=== PATIENT | female | born 1955 | race African-American/Black ===

== ENCOUNTER → 2017-04-13 | Outpatient (CLI) | payer OTHER ==
--- NOTE | 2017-04-13 12:56 | WOMENS IMAGING REPORT ---
EXAM DESCRIPTION: BILAT SCREENING MAMMO W/CAD COMPLETED DATE/TIME: 04/13/2017 12:26 pm REASON FOR STUDY: ROUTINE SCREENING; Z12.31 Z12.31 ENCNTR SCREEN MAMMOGRAM FOR MALIGNANT NEOPLASM O F PB COMPARISON: 2008 to 2011 TECHNIQUE: Standard craniocaudal and mediolateral oblique views of each breast recorded using Cardbacka l acquisition. LIMITATIONS: None. FINDINGS: RIGHT BREAST MASSES: No suspicious masses. CALCIFICATIONS: No new or suspicious calcifications. ARCHITECTURAL DISTORTION: None. DEVELOPING DENSITY: None. ASYMMETRY: None noted. OTHER: No other significant findings. LEFT BREAST MASSES: Smooth well-circumscribed 6 mm mass at 11 o'clock 4.5 cm from the nipple CALCIFICATIONS: No new or suspicious calcifications. ARCHITECTURAL DISTORTION: None. DEVELOPING DENSITY: None. ASYMMETRY: None noted. OTHER: No other significant findings. Read with the assistance of CAD. .[facility] - R2 Cenova Version 1.3 .[facility] - R2 Cenova Version 1.3 .[facility] - R2 Cenova Version 2.4 .[facility] [place] - R2 Cenova Version 2.4 .[facility] - R2 Implementation Project Coordinator Version 9.2 IMPRESSION: New mass in left breast BREAST DENSITY: b. There are scattered areas of fibroglandular density. BIRAD: 0 Incomplete: Needs Additional Imaging Evaluation and/or prior Mammograms for Comparison. RECOMMENDATION: RECOMMENDED FOLLOW-UP: Spot compression and ultrasound. The patient will be contacted for additional imaging. COMMENT: The patient has been notified of the results by letter per SA requirements. Additional no tification policies are in place for contacting patient with suspicious or incomplete findings. Quality ID #[id number]: The [employer] recommends an annual screening mammogram for women aged 40 years or over. This facility utilizes a reminder system to ensure that all patients receive reminder letters, and/or direct phone calls for appointments. This includes reminders for routine scr eening mammograms, diagnostic mammograms, or other Breast Imaging Interventions when appropriate. Th is patient will be placed in the appropriate reminder system. The [employer] (ACR) has developed recommendations for screening MRI of the breast s in certain patient populations, to be used in conjunction with mammography. Breast MRI surveillanc e may be appropriate for women with more than 20% lifetime risk of developing breast cancer as deter mined by genetic testing, significant family history of the disease, or history of mantle radiation f or Hodgkins Disease. ACR Practice Guidelines 2008. TECHNICAL DOCUMENTATION: FINDING NUMBER: (1) ASSESSMENT: (1) JOB ID: [id number] [employer]- All Rights Reserved
== END ==
LOC: WI 11:36
PROVIDERS: ATTEND Family Medicine
DX: Z12.31 Encounter for screening mammogram for malignant neoplasm of breast (principal)
CPT/HCPCS: 77067; G0202

== ENCOUNTER → 2017-05-14 | Day surgery (SDC) | payer OTHER ==
[~2017-05-14] MED LIST: LIDOCAINE 2% INJ (20 MG/ML) 20 ML MDV ONE
--- NOTE | 2017-05-18 17:01 | WOMENS IMAGING REPORT ---
EXAM DESCRIPTION: U/S BREAST BX; LEFT DIG DX MAMMO NO CHG COMPLETED DATE/TIME: 05/14/2017 12:05 pm; 05/14/2017 11:30 am REASON FOR STUDY: LEFT BREAST LUMP; N63.22 S/P LEFT BRST US BX FOR CLIP PLACEMENT N63.22 UNSPECIFIE D LUMP IN THE LEFT BREAST, UPPER INNER QUAD COMPARISON: Mammograms 04/13/2017, 05/05/2017 Left breast ultrasound 05/05/2017 TECHNIQUE: The procedure was discussed with the patient and the patient agreed to proceed. The patient was scanned and the area of interest in the 10 to 11 o'clock position 4 to 5 cm from the nipple of the left breast was localized. This correlates with the area of concern on prior imaging s [place]. This area was targeted for ultrasound-guided core biopsy. After sterile skin prep and 2.5 mL local lidocaine 1% for skin and deep tissue anesthesia, a 14 gauge coaxial core biopsy needle was used to obtain several cores of tissue from the lesion. Under ultras ound guidance, a ribbon clip was placed in the areas sampled. There were no immediate post-procedure complications. MAMMOGRAM: Post-procedure two view mammogram was acquired in the digital mammogram suite. The clip wa s in the expected location. No significant hematoma. Pathology yields a diagnosis of sclerosing adenosis, usual ductal hyperplasia, fibrocystic changes, l ikely a small fibroadenoma. No atypia or malignancy Pathology is concordant. LIMITATIONS: None. FINDINGS: Ultrasound guided breast biopsy as described above. POST PROCEDURE MAMMOGRAMS FOR MARKER PLACEMENT: Yes IMPRESSION: ULTRASOUND-GUIDED CORE BIOPSY OF THE LEFT BREAST YIELDS A DIAGNOSIS OF BENIGN FIBROADENO MA BI-RADS 2 Benign findings. Please resume yearly bilateral screening mammograms in March 2018. Please consider bilateral scree jorge tomosynthesis. COMMENT: COMMUNICATION: This result was called to Dr. Stoddard's nurse, Marianela, 05/18/2017, 1500 hours. I was unable to with the patient directly to discuss the biopsy results Patient medication list reviewed: Yes- Quality ID# [id number]:Eligible professional attests to documenting i n the medical record they obtained, updated, or reviewed the patient's current medications. TECHNICAL DOCUMENTATION: JOB ID: [id number] [employer]- All Rights Reserved
== END ==
LOC: WI 10:28
PROVIDERS: ATTEND Family Medicine
PROC: 0HBU3ZX Excision of Left Breast, Percutaneous Approach, Diagnostic (ICD-10-PCS; principal; 2017-05-14)
DX: N60.22 Fibroadenosis of left breast (principal); N60.12 Diffuse cystic mastopathy of left breast; N60.92 Unspecified benign mammary dysplasia of left breast
CPT/HCPCS: 88342 ×2; 88341 ×2; 88305 ×2; 19083; J3490

== ENCOUNTER 2017-06-24 13:46 | Emergency (ER) | payer OTHER ==
[2017-06-24 14:34] LABS: APPEARANCE,URINE SLIGHTLY-CLOUDY; BILIRUBIN,URINE NEGATIVE (NEGATIVE); COLOR,URINE YELLOW; GLUCOSE, URINE NEGATIVE (NEGATIVE); KETONES,URINE NEGATIVE (NEGATIVE); LEUKOCYTE ESTERASE,URINE NEGATIVE (NEGATIVE); NITRITE,URINE NEGATIVE (NEGATIVE); PROTEIN,URINE NEGATIVE (NEGATIVE); URINE SPECIFIC GRAVITY 1.014; UROBILINOGEN,URINE NEGATIVE mg/dL (<2.0)
[2017-06-24 14:46] LABS: ABSOLUTE BASOPHILS # (AUTO) 0.1 10^3/uL (0.0-0.2); ABSOLUTE EOSINOPHILS # (AUTO) 0.6 10^3/uL (0.0-0.6); ABSOLUTE LYMPHOCYTES (AUTO) 2.1 10^3/uL (0.5-4.7); ABSOLUTE NEUT (AUTO) 5.1 10^3/uL (1.7-8.2); BASOPHILS % (AUTO) 0.8 % (0-2); EOSINOPHILS % (AUTO) 7.2 % (0-6); HEMATOCRIT 35.4 % (36.0-47.0); HEMOGLOBIN 11.7 g/dL (12.0-15.5); MEAN CORPUSCULAR HGB CONC 32.9 g/dL (32.0-36.0); MEAN CORPUSCULAR VOLUME 88 fl (80-97); MONOCYTES % (AUTO) 11.7 % (3-13); PLATELET COUNT 316 10^3/uL (150-450); RED BLOOD COUNT 4.03 10^6/uL (3.72-5.28); RED CELL DISTRIBUTION WIDTH 13.9 % (11.5-14.0); SEGMENTED NEUTROPHILS % (AUTO) 57.3 % (42-78); TOTAL CELLS COUNTED % (AUTO) 100 %
[2017-06-24 14:56] LABS: ALANINE AMINOTRANSFERASE 26 U/L (9-52); ALBUMIN 4.4 g/dL (3.5-5.0); ALKALINE PHOSPHATASE 135 U/L (38-126); ANION GAP 11 (5-19); ASPARTATE AMINO TRANSFERASE 32 U/L (14-36); BILIRUBIN,DIRECT 0.4 mg/dL (0.0-0.4); BILIRUBIN,TOTAL 0.5 mg/dL (0.2-1.3); BLOOD UREA NITROGEN 14 mg/dL (7-20); CARBON DIOXIDE 29 mmol/L (22-30); CHLORIDE 107 mmol/L (98-107); CREATINE KINASE 124 U/L (30-135); GLUCOSE 87 mg/dL (75-110); POTASSIUM 4.3 mmol/L (3.6-5.0); SODIUM 147.2 mmol/L (137-145); TOTAL PROTEIN 7.6 g/dL (6.3-8.2)
[2017-06-24 15:08] LABS: CREATINE KINASE MB 0.42 ng/mL (<4.55); NT PRO BNP 210 pg/mL (5-900)
[2017-06-24 15:10] LABS: TROPONIN I < 0.012 ng/mL
--- NOTE | 2017-06-24 15:51 | RADIOLOGY REPORT (SQ) ---
EXAM DESCRIPTION: CHEST SINGLE VIEW COMPLETED DATE/TIME: 06/24/2017 3:28 pm REASON FOR STUDY: sob COMPARISON: 11/23/2014. EXAM PARAMETERS: NUMBER OF VIEWS: One view. TECHNIQUE: Single frontal radiographic view of the chest acquired. RADIATION DOSE: NA LIMITATIONS: None. FINDINGS: LUNGS AND PLEURA: No opacities, masses or pneumothorax. No pleural effusion. MEDIASTINUM AND HILAR STRUCTURES: No masses. Contour normal. HEART AND VASCULAR STRUCTURES: Heart normal in size. Normal vasculature. BONES: No acute findings. HARDWARE: None in the chest. OTHER: No other significant finding. IMPRESSION: NO ACUTE RADIOGRAPHIC FINDING IN THE CHEST. TECHNICAL DOCUMENTATION: JOB ID: [id number] [employer]- All Rights Reserved
--- NOTE | 2017-06-24 16:37 | ER Document Report ---
ED General - General Chief Complaint: Leg Swelling Stated Complaint: FEET SWELLING Time Seen by Provider: 06/24/17 14:25 Mode of Arrival: Ambulatory Information source: Patient, Relative Notes: Patient is a 61-year-old morbidly obese black female comes emergency room with a complaint of bilateral lower extremity swelling. Patient states his been going on for over a month and getting worse. 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 She has only a history of hypertension no history of congestive heart failure or heart problems. Patient does not smoke but has a history of asthma and she states she is attempted to wear support stockings but she can keep them up high enough. She also states that occasionally she gets a little short of breath and occasionally she gets a little discomfort in her chest but this is chronic for months. She has discussed this with her primary care but has not divulged all the history to him. Currently patient's primary care provider is out of town until the first of the year. TRAVEL OUTSIDE OF THE [place] IN LAST 30 DAYS: No - HPI Patient complains to provider of: Bilateral lower extremity edema Onset: Other - Over a month Onset/Duration: Gradual, Waxing and waning Quality of pain: Achy, Throbbing Severity: Moderate Pain Level: 3 Associated symptoms: Leg swelling. denies: None, Allergy/hay fever, Body/ muscle aches, Chest pain, Chills, Nonproductive cough, Productive cough, Diarrhea, Drooling, Earache, Fever, Headache, Hoarseness, Hurts to breath, Nausea, Vomiting, Rhinnorhea, Sinus pain/drainage, Shortness of breath, Slow to respond, Sore throat, Sweating, Weakness, Other Exacerbated by: Standing - , standing, Walking, Other - Exertion Relieved by: Supine, Other - Elevation Similar symptoms previously: Yes Recently seen / treated by doctor: No - Related Data Allergies/Adverse Reactions: No Known Allergies Allergy (Verified 06/24/17 13:49) Past Medical History - General Information source: Patient, Relative - Social History Smoking Status: Never Smoker Chew tobacco use (# tins/day): No Frequency of alcohol use: None Drug Abuse: None Family History: Reviewed & Not Pertinent Patient has suicidal ideation: No Patient has homicidal ideation: No - Past Medical History Cardiac Medical History: Reports: Hx Hypertension Renal/ Medical History: Denies: Hx Peritoneal Dialysis Musculoskeltal Medical History: Reports Hx Arthritis Past Surgical History: Reports: Hx Tonsillectomy - Immunizations Hx Diphtheria, Pertussis, Tetanus Vaccination: Yes Review of Systems - Review of Systems Constitutional: No symptoms reported EENT: No symptoms reported Cardiovascular: No symptoms reported Respiratory: No symptoms reported Gastrointestinal: No symptoms reported Genitourinary: No symptoms reported Female Genitourinary: No symptoms reported Musculoskeletal: Joint pain Skin: No symptoms reported Hematologic/Lymphatic: No symptoms reported Neurological/Psychological: No symptoms reported -: Yes All other systems reviewed and negative Physical Exam - Vital signs Vitals: Temp Pulse Resp BP Pulse Ox 98.2 F 76 16 147/87 H 100 06/24/17 13:58 06/24/17 13:58 06/24/17 13:58 06/24/17 13:58 06/24/17 13:58 Interpretation: Hypertensive - General General appearance: Appears well - HEENT Head: Normocephalic, Atraumatic Eyes: Normal Mouth/Lips: Normal Mucous membranes: Normal, Moist Pharynx: Normal Neck: Normal - Respiratory Respiratory status: No respiratory distress Chest status: Nontender Breath sounds: Decreased air movement. No: Normal, Nonproductive cough, Productive cough, Rales, Rhonchi, Stridor, Wheezing, Other Chest palpation: Normal. No: Flail segment, [place] frothy sputum, Purulent sputum , Subcutaneous emphysema, Sucking chest wound, Tender, Ecchymosis, Wounds, Other - Cardiovascular Rhythm: Regular Heart sounds: Normal auscultation Murmur: No - Abdominal Inspection: Normal Distension: No distension Bowel sounds: Normal Tenderness: Nontender - Extremities General upper extremity: Normal inspection, Normal ROM General lower extremity: Tender, Edema, Normal temperature, Normal weight bearing. No: Normal inspection, Nontender, Normal color, Normal ROM, Normal strength, Henry's sign, Other Knee: Other - Examination patient's lower extremities show that as stated earlier she is excessively obese her thighs are minimal at 32 inches round and that works his way down into the lower extremity of the calves which appear moderately swollen with mild edema. And that goes into feet that are puffy on the top. Patient does not have any type of compartment syndrome. She has range of motion in all planes bilateral lower extremities. She has good cap refill in the nailbeds of each of the toes bilaterally. She has good dorsalis pedal pulse. It is difficult to tell the amount of swelling in this patient. There is a good popliteal pulse bilaterally as well, as well as a good femoral pulse. Ankle: Normal Foot: Edema - Neurological Neuro grossly intact: Yes Cognition: Normal Orientation: AAOx4 Allan Coma Scale Eye Opening: Spontaneous [place] Coma Scale Verbal: Oriented [place] Coma Scale Motor: Obeys Commands [place] Coma Scale Total: 15 Speech: Normal - Skin Skin Temperature: Warm Skin Moisture: Dry Skin Color: Normal, [place] Course - Vital Signs Vital signs: Temp Pulse Resp BP Pulse Ox 98.2 F 76 16 147/87 H 100 06/24/17 13:58 06/24/17 13:58 06/24/17 13:58 06/24/17 13:58 06/24/17 13:58 - Laboratory Result Diagrams: 06/24/17 14:10 06/24/17 14:10 Laboratory results interpreted by me: 06/24/17 06/24/17 06/24/17 14:10 14:10 14:10 Hgb 11.7 L Hct 35.4 L Eosinophils % 7.2 H Sodium 147.2 H Alkaline Phosphatase 135 H Urine Ascorbic Acid 20 H - Diagnostic Test Radiology reviewed: Reports reviewed - Chest x-ray showed no acute findings - Transfer of Care Notes: 06/24/17 16:41 Patient's stay has been uneventful. She is maintaining normal vital signs structure she has not been any shortness of breath and no chest pain. She has had her feet elevated and there is some reduction in swelling noted. Patient's labs come back normal with no elevation in her BNP cardiac enzymes were negative. Chest x-ray was negative her hemoglobin and hematocrit were normal. Patient's EKG showed normal sinus rhythm at about 57 bpm. At this time I have informed patient that this does not appear to be a presentation of congestive heart or or or pump failure problem. I have informed her that this goes along the lines more of gravity dependent edema meaning that is the older we get in a more weight we put on the veins are not as elastic and therefore when she stands all day swelling occurs. Because the veins are unable to push the blood up and out. I have talked to patient about getting support stockings but this will be a major problem given patient's body habitus I recommended that she contact her primary care physician the first of the year discussed with him the options for helping her get to a goal weight as well as get any kind of outside help she possibly could for some type of a support process for her legs. I also discussed case with Dr. Subramanian who also states there is no other course of action that he can think of is well. She is safe to go home I will send her back to work tomorrow with the restriction of no long periods of standing for the next 3 days and when sitting elevation of the legs. Discharge - Discharge Clinical Impression: Peripheral vascular disease of extremity Condition: Good Disposition: HOME, SELF-CARE Instructions: Dependent Edema ([facility]), Edema, Peripheral ([facility]), Peripheral Vascular Disease ([facility]) Additional Instructions: Home and rest. As we discussed you would benefit from using support stockings of some sort. Highly recommend that you follow-up with your primary care as we discussed to talk about the option they may have for reduction in the swelling to your lower extremities. Currently her best course of action would be to elevate the lower extremities much as possible. I will write a note the marrow return to work tomorrow on the long periods of standing when not standing elevation of legs is important. Should you have any concerns or problems increased shortness of breath have any kind of chest pain return to ER for recheck. Forms: Return to Work Referrals: MEL BLACK PA [Primary Care Provider] - Follow up as needed
[2017-06-24 17:47] VITALS: BP 149/85
--- NOTE | 2017-06-27 12:34 | EKG REPORT ---
SEVERITY:- NORMAL ECG - SINUS RHYTHM : Confirmed by: Xin Conn MD 27-Jun-2017 12:33:46
== END 2017-06-24 17:30 | disposition home or self-care (01) ==
LOC: ER 13:46
DX: I73.9 Peripheral vascular disease, unspecified (principal); M79.89 Other specified soft tissue disorders; E66.01 Morbid (severe) obesity due to excess calories
CPT/HCPCS: 36415; 71010; 80053; 81001; 82550; 82553; 83880; 84484; 85025; 93005; 93010; 99284

== ENCOUNTER → 2018-06-08 | Outpatient (CLI) | payer OTHER ==
[~2018-06-08] MED LIST changes: +ALBUTEROL SULFATE 0.083% NEB 2.5 MG/3 ML AMPUL NEB ONE; -LIDOCAINE 2% INJ (20 MG/ML) 20 ML MDV ONE
--- NOTE | 2018-06-08 15:34 | Pulmonary Function Test ---
Pulmonary Function Test Date of Procedure:: 06/08/18 INDICATION:: Shortness of breath Referring Provider: Dr. Reese Clinical Services Consultant: Cherie Cordoba HE[employer] CARE LAW SPECIALIST - Report Spirometry: FVC 2.63 L 80% postbronchodilator 2.63 L 80% FEV1 2.10 L 79% postbronchodilator 2.13 L 80% FEV1/FVC % 80 postbronchodilator 81 predicted 82 FEF 25-75% 2.21 L 80% postbronchodilator 2.68 L 97% Diffusion Capactity: Diffusion capacity 13.2 39% DLCO/VA 4.70 121% Impression: Minimal obstructive defect is implied by the decrease in FEF 25-75% it was a good response to bronchodilator therapy. Severe decrease in diffusion capacity.
== END ==
LOC: RT 10:14
PROVIDERS: ATTEND Internal Medicine Rheumatology
DX: R06.00 Dyspnea, unspecified (principal); M32.10 Systemic lupus erythematosus, organ or system involvement unspecified; R05 Cough
CPT/HCPCS: 94060; 94729

== ENCOUNTER → 2018-07-06 | Outpatient (CLI) | payer OTHER ==
--- NOTE | 2018-07-06 14:53 | RADIOLOGY REPORT (SQ) ---
EXAM DESCRIPTION: CT CHEST WITHOUT COMPLETED DATE/TIME: 07/06/2018 1:19 pm REASON FOR STUDY: M32.10 SYSTEMIC LUPUS ERYTHEMATOSUS, ORGAN OR SYSTEM INVOLV UNSP M32.10 SYSTEMIC LUPUS ERYTHEMATOSUS, ORGAN OR SYSTEM INVOLV J84.10 PULMONARY FIBROSIS, UNSPECIFIED COMPARISON: None. TECHNIQUE: CT scan performed of the chest without intravenous contrast. Images reviewed with lung, soft tissue and bone windows. Reconstructed coronal and sagittal MPR images reviewed. All images st ored on PACS. All CT scanners at this facility use dose modulation, iterative reconstruction, and/or weight based d osing when appropriate to reduce radiation dose to as low as reasonably achievable (ALARA). [facility]: Dose Right [facility]: CareDose [facility]: Dose Right [facility]: Teradose 4D [facility]: Smart Technologies RADIATION DOSE: CT Rad equipment meets quality standard of care and radiation dose reduction techniq ues were employed. CTDIvol: 19.4 mGy. DLP: 666 mGy-cm. mGy. LIMITATIONS: No technical limitations. FINDINGS: LUNGS AND PLEURA: No masses, infiltrates, or pneumothorax. No pleural effusions or pleura l calcifications. HILAR AND MEDIASTINAL STRUCTURES: No mediastinal or hilar masses or adenopathy. Moderate hiatal dianne ia. HEART AND VASCULAR STRUCTURES: No aneurysm. No pericardial effusion. UPPER ABDOMEN: No significant findings. Limited exam. THYROID AND OTHER SOFT TISSUES: No masses. No adenopathy. BONES: No significant finding. HARDWARE: None in the chest. OTHER: No other significant findings. IMPRESSION: Hiatal hernia. No acute findings in the thorax. TECHNICAL DOCUMENTATION: JOB ID: [id number] Quality ID # [id number]: Final reports with documentation of one or more dose reduction techniques (e.g., Au tomated exposure control, adjustment of the mA and/or kV according to patient size, use of iterative reconstruction technique) 2010 [employer]- All Rights Reserved Reading location - IP/workstation name: [email or web address]
== END ==
LOC: RAD 14:46
PROVIDERS: ATTEND Internal Medicine Rheumatology
DX: M32.10 Systemic lupus erythematosus, organ or system involvement unspecified (principal); J84.10 Pulmonary fibrosis, unspecified
CPT/HCPCS: 71250

== ENCOUNTER → 2018-10-01 | Outpatient (CLI) | payer OTHER ==
--- NOTE | 2018-10-01 13:34 | RADIOLOGY REPORT (SQ) ---
EXAM DESCRIPTION: MRI HEAD COMBO COMPLETED DATE/TIME: 10/01/2018 12:21 pm REASON FOR STUDY: MIGRAINE M54.2/G43.709 G43.709 CHRONIC MIGRAINE W/O AURA, NOT INTRACTABLE, W/O ST AT M54.2 CERVICALGIA COMPARISON: None. TECHNIQUE: Multiplanar imaging includes noncontrasted T1, T2, FLAIR, and Diffusion with ADC map seq uences. Contrast enhanced T1 images. Images stored on PACS. CONTRAST TYPE AND DOSE: 20 mL Dotarem. RENAL FUNCTION: Not indicated. ACR Type II contrast agent associated with few, if any, unconfounded cases of NSF LIMITATIONS: None. FINDINGS: ANATOMY: No anomalies. Normal vascular flow voids. Pituitary fossa normal. CSF SPACES: Normal size and contour. No hemorrhage. CEREBRUM: A few high-signal intensity lesions scattered throughout the white matter on FLAIR imaging with distribution suggesting chronic microvascular ischemic change. Sulci and gyri normal in size and contour. No evidence of hemorrhage, mass or extraaxial fluid collection. No enhancing lesions. POSTERIOR FOSSA: No signal alteration. No hemorrhage. No edema, masses or mass effect. Internal audit ory canals, cerebello-pontine angles, mastoids normal. DIFFUSION: Negative for acute or subacute infarction. ORBITS: No masses. Globes normal. PARANASAL SINUSES: No fluid levels. Mucosa normal. OTHER: No other significant finding. IMPRESSION: No acute abnormality in the brain. EVIDENCE OF ACUTE STROKE: NO. TECHNICAL DOCUMENTATION: JOB ID: [id number] [employer]- All Rights Reserved Reading location - IP/workstation name: [email or web address]
== END ==
LOC: RAD 09-21 09:00
PROVIDERS: ATTEND Nurse Practitioner Family
DX: G43.709 Chronic migraine without aura, not intractable, without status migrainosus (principal); M54.2 Cervicalgia
CPT/HCPCS: 82565; 70553; A9576

== ENCOUNTER → 2018-12-28 | Outpatient (CLI) | payer BC ==
--- NOTE | 2018-12-28 16:39 | XCELERA REPORT ---
[address] [address] Transthoracic Echocardiogram Report Name: OMID BAUTISTA Age: 63 yrs Gender: Female : 1955 Patient Status: Outpatient Patient Location: Study Date: 12/28/2018 11:24 AM Height: 67 in Weight: 369 lb BSA: 2.6 m2 Procedure: A complete two-dimensional transthoracic echocardiogram was performed (2D, M-mode, spectral and color flow Doppler). The study was technically adequate with some images being suboptimal in quality. Reason For Study: CP Ordering Physician: RISA FORD Performed By: Debby Benton Interpretation Summary The left ventricular ejection fraction is normal. There is mild concentric left ventricular hypertrophy. Doppler measurements suggest impaired left ventricular relaxation, which is associated with grade I/IV or mild diastolic dysfunction The left ventricle is grossly normal size. Wall motion cannot be accurately commented on, but no definite regional wall motion abnormalities noted. The right ventricular systolic function is normal. The left atrial size is normal. The right atrium is normal in size There is a trace amount of mitral regurgitation There is no mitral valve stenosis. No aortic regurgitation is present. There is no aortic valve stenosis There is a trace or physiologic amount of tricuspid regurgitation Tricuspid regurgitation jet envelope not well defined to measure RV systolic pressure accurately. There is no pericardial effusion. MMode/2D Measurements & Calculations RVDd: 3.6 cm LVIDd: 5.8 cm FS: 36.0 % Ao root diam: 2.9 cm IVSd: 1.0 cm LVIDs: 3.7 cm EDV(Teich): 164.3 ml Ao root area: 6.6 cm2 LVPWd: 1.0 cm ESV(Teich): 57.9 ml LA dimension: 4.0 cm EF(Teich): 64.8 % Doppler Measurements & Calculations MV E max waqar: MV P1/2t max waqar: Ao V2 max: LV V1 max P.1 cm/sec 97.5 cm/sec 193.9 cm/sec 13.3 mmHg MV A max waqar: MV P1/2t: 62.3 msec Ao max PG: LV V1 max: 91.9 cm/sec MVA(P1/2t): 3.5 cm2 15.0 mmHg 182.0 cm/sec MV E/A: 1.1 MV dec slope: 458.5 cm/sec2 MV dec time: 0.20 sec PA V2 max: TR max waqar: MV P1/2t-pr_phl: 99.2 cm/sec 232.1 cm/sec 62.3 msec PA max PG: TR max P.6 mmHg 3.9 mmHg Left Ventricle The left ventricle is grossly normal size. There is mild concentric left ventricular hypertrophy. The left ventricular ejection fraction is normal. Doppler measurements suggest impaired left ventricular relaxation, which is associated with grade I/IV or mild diastolic dysfunction. Wall motion cannot be accurately commented on, but no definite regional wall motion abnormalities noted. Right Ventricle The right ventricle is grossly normal size. There is normal right ventricular wall thickness. The right ventricular systolic function is normal. Atria The right atrium is normal in size. The left atrial size is normal. Interarterial septum not well visualized and not well dopplered. Cannot comment on ASD/PFO presence. Mitral Valve The mitral valve is grossly normal. There is no mitral valve stenosis. There is a trace amount of mitral regurgitation. Aortic Valve The aortic valve is grossly normal. There is no aortic valve stenosis. No aortic regurgitation is present. Tricuspid Valve The tricuspid valve is not well visualized, but is grossly normal. There is no tricuspid stenosis. There is a trace or physiologic amount of tricuspid regurgitation. Tricuspid regurgitation jet envelope not well defined to measure RV systolic pressure accurately. Pulmonic Valve The pulmonic valve is not well visualized. Great Vessels The aortic root is not well visualized but is probably normal size. The inferior vena cava was not well visualized. Effusions There is no pericardial effusion. : RISA FORD > Amy Grissom
== END ==
LOC: SP 10:51
PROVIDERS: ATTEND Nurse Practitioner Adult Health
DX: R07.9 Chest pain, unspecified (principal)
CPT/HCPCS: 93306

== ENCOUNTER 2019-04-19 16:21 | Emergency (ER) | payer BC, OTHER ==
[2019-04-19] MEDS ORDERED: IPRATROPIUM/ALBUTEROL 0.5-2.5 MG/3 ML AMPUL NEB ONE ×2 (16:38→18:11)
--- NOTE | 2019-04-19 16:39 | ER Document Report ---
ED Medical Screen (RME) - General Chief Complaint: Breathing Difficulty Stated Complaint: TROUBLE BREATHING Time Seen by Provider: 04/19/19 16:37 Primary Care Provider: RISA FORD FNP-C [Primary Care Provider] - Follow up as needed Mode of Arrival: Ambulatory Notes: Patient presents complaining of difficulty breathing with chest pain and cough for the past 2 weeks. Patient also complains of headache. No fever, no nausea or vomiting. Patient tachypneic in triage. hx: Hypertension, gout, lupus, asthma I have greeted and performed a rapid initial assessment of this patient. A comprehensive ED assessment and evaluation of the patient, analysis of test results and completion of the medical decision making process will be conducted by additional ED providers. TRAVEL OUTSIDE OF THE [place] IN LAST 30 DAYS: No - Related Data Allergies/Adverse Reactions: No Known Allergies Allergy (Verified 04/19/19 16:36) Past Medical History - Past Medical History Cardiac Medical History: Reports: Hx Hypertension Renal/ Medical History: Denies: Hx Peritoneal Dialysis Musculoskeltal Medical History: Reports Hx Arthritis Past Surgical History: Reports: Hx Tonsillectomy - Immunizations Hx Diphtheria, Pertussis, Tetanus Vaccination: Yes Physical Exam - Vital signs Vitals: Temp Pulse Resp BP Pulse Ox 98.2 F 101 H 28 H 153/107 H 95 04/19/19 16:28 04/19/19 16:28 04/19/19 16:28 04/19/19 16:28 04/19/19 16:28 - Respiratory Respiratory status: Tachypnea Chest status: Tender Breath sounds: Nonproductive cough - Cardiovascular Rhythm: Tachycardia Heart sounds: S1 appreciated, S2 appreciated Course - Vital Signs Vital signs: Temp Pulse Resp BP Pulse Ox 98.2 F 101 H 28 H 153/107 H 95 04/19/19 16:28 04/19/19 16:28 04/19/19 16:28 04/19/19 16:28 04/19/19 16:28 Doctor's Discharge - Discharge Referrals: RISA FORD FNP-C [Primary Care Provider] - Follow up as needed
--- NOTE | 2019-04-19 17:26 | RADIOLOGY REPORT (SQ) ---
EXAM DESCRIPTION: CHEST 2 VIEWS COMPLETED DATE/TIME: 04/19/2019 5:04 pm REASON FOR STUDY: cp, sob COMPARISON: Chest radiographs 11/23/2014 EXAM PARAMETERS: NUMBER OF VIEWS: two views TECHNIQUE: Digital Frontal and Lateral radiographic views of the chest acquired. RADIATION DOSE: NA LIMITATIONS: none FINDINGS: LUNGS AND PLEURA: No opacities, masses or pneumothorax. No pleural effusion. MEDIASTINUM AND HILAR STRUCTURES: No masses or contour abnormalities. HEART AND VASCULAR STRUCTURES: Heart normal size. No evidence for failure. BONES: No acute findings. HARDWARE: None in the chest. OTHER: No other significant finding. IMPRESSION: NO ACUTE RADIOGRAPHIC FINDING IN THE CHEST. TECHNICAL DOCUMENTATION: JOB ID: [id number] [employer]- All Rights Reserved Reading location - IP/workstation name: [email or web address]
[2019-04-19 17:54] LABS: ABSOLUTE LYMPHOCYTES (AUTO) 1.2 10^3/uL (0.5-4.7); ABSOLUTE MONOCYTES (AUTO) 0.9 10^3/uL (0.1-1.4); ABSOLUTE NEUT (AUTO) 8.9 10^3/uL (1.7-8.2); BASOPHILS % (AUTO) 0.4 % (0-2); EOSINOPHILS % (AUTO) 0.2 % (0-6); HEMATOCRIT 37.4 % (36.0-47.0); HEMOGLOBIN 12.2 g/dL (12.0-15.5); LYMPHOCYTES % (AUTO) 10.7 % (13-45); MEAN CORPUSCULAR HEMOGLOBIN 28.7 pg (27.0-33.4); MEAN CORPUSCULAR HGB CONC 32.5 g/dL (32.0-36.0); MEAN CORPUSCULAR VOLUME 88 fl (80-97); MONOCYTES % (AUTO) 8.2 % (3-13); PLATELET COUNT 260 10^3/uL (150-450); RED BLOOD COUNT 4.24 10^6/uL (3.72-5.28); RED CELL DISTRIBUTION WIDTH 13.6 % (11.5-14.0); SEGMENTED NEUTROPHILS % (AUTO) 80.5 % (42-78); TOTAL CELLS COUNTED % (AUTO) 100 %; WHITE BLOOD COUNT 11.1 10^3/uL (4.0-10.5)
[2019-04-19 18:11] LABS: ALBUMIN 4.4 g/dL (3.5-5.0); ALKALINE PHOSPHATASE 100 U/L (38-126); ANION GAP 14 (5-19); ASPARTATE AMINO TRANSFERASE 36 U/L (14-36); BILIRUBIN,DIRECT 0.3 mg/dL (0.0-0.4); BILIRUBIN,TOTAL 0.4 mg/dL (0.2-1.3); BLOOD UREA NITROGEN 19 mg/dL (7-20); CALCIUM 10.3 mg/dL (8.4-10.2); CARBON DIOXIDE 25 mmol/L (22-30); CHLORIDE 105 mmol/L (98-107); GLUCOSE 113 mg/dL (75-110); TOTAL PROTEIN 7.5 g/dL (6.3-8.2)
[2019-04-19] MEDS ORDERED: PREDNISONE 20 MG TABLET PO ONE (18:11)
[2019-04-19 18:23] LABS: NT PRO BNP 151 pg/mL (5-900)
--- NOTE | 2019-04-19 18:23 | ER Document Report ---
ED General - General Chief Complaint: Shortness Of Breath Stated Complaint: TROUBLE BREATHING Time Seen by Provider: 04/19/19 16:37 Primary Care Provider: RISA FORD FNP-C [NO LOCAL MD] - Follow up as needed Mode of Arrival: Ambulatory TRAVEL OUTSIDE OF THE [place] IN LAST 30 DAYS: No - Related Data Allergies/Adverse Reactions: No Known Allergies Allergy (Verified 04/19/19 16:36) Home Medications: most medications entered. Past Medical History - Social History Smoking Status: Unknown if Ever Smoked Chew tobacco use (# tins/day): No Frequency of alcohol use: None Drug Abuse: None Family History: Reviewed & Not Pertinent Patient has suicidal ideation: No Patient has homicidal ideation: No - Past Medical History Cardiac Medical History: Reports: Hx Hypertension Renal/ Medical History: Denies: Hx Peritoneal Dialysis Musculoskeletal Medical History: Reports Hx Arthritis Past Surgical History: Reports: Hx Tonsillectomy - Immunizations Hx Diphtheria, Pertussis, Tetanus Vaccination: Yes Physical Exam - Vital signs Vitals: Temp Pulse Resp BP Pulse Ox 98.2 F 101 H 28 H 153/107 H 95 04/19/19 16:28 04/19/19 16:28 04/19/19 16:28 04/19/19 16:28 04/19/19 16:28 - Notes Notes: Patient presents [facility] complaint of shortness of breath has been going on for the past 2 weeks. Is been associated with a nonproductive cough he denies any fevers nausea vomiting associated with this. Also complaining of intermittent chest pain which is substernal and radiates to both shoulders she describes as a shooting pain lasts for a brief period of time and resolves. Does not have this all the time with ambulation but is having some discomfort right now she says is never been a tightness or pressure sensation. She is used her aerosol machine once or twice a day with relief is had some relief with her inhaler does not have a spacer. She has not been taking her Lasix recently His medical history meds and allergies are listed on triage note and reviewed. No history of coronary artery disease diabetes or CHF history of COPD Review of systems all systems were reviewed and and acutely negative except as in HPI PHYSICAL EXAMINATION: GENERAL: Well-appearing, well-nourished and in no acute distress. Vital signs are noted repeat blood pressure 125/82 HEAD: Atraumatic, normocephalic. EYES: Pupils equal round and reactive to light, extraocular movements intact, sclera anicteric, conjunctiva are normal. ENT: nares patent, oropharynx clear without exudates. Moist mucous membranes. NECK: Normal range of motion, supple without lymphadenopathy LUNGS: Good breath sounds bilaterally. There is a few scattered wheezes no respiratory distress chest is nontender HEART: Regular rate and rhythm without murmurs ABDOMEN: Soft, nontender, normoactive bowel sounds. No masses appreciated. EXTREMITIES: Normal range of motion, +1 edema to the midcalf no palpable cords NEUROLOGICAL: No focal neurological deficits. Moves all extremities spontaneously and on command. Alert and oriented x4 PSYCH: Normal mood, normal affect. SKIN: Warm, Dry, normal turgor, no rashes or lesions noted. Course - Re-evaluation Re-evalutation: 04/19/19 22:38 ED patient is remained stable she was given 3 DuoNeb treatments here with some improvement of her wheezing but silicates she felt short of breath. ABGs were obtained she has a pH of 7.42 PCO2 of 40 and a PO2 of 69 which appears to be her baseline patient up to ambulate there is no significant change in her rate or pulse ox and on repeat exam there is no real change in her lungs. Chest pain has resolved Medical decision making presents with exacerbation of her COPD I did discuss case with hospitalist who felt the patient not warrant admission at this time and felt that she could be managed as an outpatient. She saw her family doctor today who put her on Zithromax. She is been using her aerosol intermittently. She seems to be very comfortable at this time and I think is reasonable to try her as an outpatient. Head Atrovent to her regimen and to use her aerosol on a regular basis is a dose of her prednisone is currently on Zithromax been advised to return immediately if he gets worse or significantly better in 2 to 3 days and to follow-up with your family doctor in 2 to 3 days if not improved or in 2 weeks recheck along with a blood pressure - Vital Signs Vital signs: Temp Pulse Resp BP Pulse Ox 98.2 F 101 H 22 H 130/96 H 98 04/19/19 16:28 04/19/19 16:28 04/19/19 21:01 04/19/19 21:01 04/19/19 21:01 - Laboratory Result Diagrams: 04/19/19 17:20 04/19/19 17:20 Laboratory results interpreted by me: 04/19/19 04/19/19 04/19/19 17:20 17:20 21:50 WBC 11.1 H Lymph % (Auto) 10.7 L Absolute Neuts (auto) 8.9 H Seg Neutrophils % 80.5 H ABG pO2 68.7 L ABG HCO3 25.9 H ABG Total CO2 27.1 H Est GFR (MDRD) Non-Af 57 L Glucose 113 H Calcium 10.3 H - Diagnostic Test Radiology reviewed: Reports reviewed - EKG Interpretation by Me Additional EKG results interpreted by me: 04/19/19 18:22 EKG read by me shows a normal sinus rhythm rate of rate of 92 there is some minimal nonspecific ST wave changes which include flattening of the T waves normal axis and QT there is no significant change from May 2017 Discharge - Discharge Clinical Impression: Asthmatic bronchitis Qualifiers: Asthma severity: mild Asthma persistence: persistent Asthma complication type: with acute exacerbation Qualified Code(s): J45.31 - Mild persistent asthma with (acute) exacerbation Condition: Good Disposition: HOME, SELF-CARE Instructions: Bronchitis With Bronchospasm (Wheezing) ([facility]), Chest Pain of Unclear Cause ([facility]) Additional Instructions: Use your aerosol machine every 4 hours tomorrow then every 6 hours for the next 5 days then as needed, return if you get worse or unable to follow-up with your family doctor, follow-up with your family doctor in 2 to 3 days if not better otherwise in 10 days Prescriptions: Ipratropium [place] [Atrovent 0.02% Neb 0.5 Mg/2.5 Ml Vial.Neb] 0.5 mg IH ASDIR #30 vial.neb Prednisone [Deltasone] 20 mg PO TID #15 tablet Forms: Elevated Blood Pressure Referrals: RISA FORD FNP-C [NO LOCAL MD] - Follow up as needed
[2019-04-19 18:24] LABS: TROPONIN I < 0.012 ng/mL
--- NOTE | 2019-04-19 19:01 | EKG REPORT ---
SEVERITY:- ABNORMAL ECG - SINUS RHYTHM NONSPECIFIC T ABNORMALITIES, INFERIOR LEADS : Confirmed by: Xin Conn MD 19-Apr-2019 19:00:30
[2019-04-19 22:09] LABS: ARTERIAL BLOOD BASE EXCESS 1.3 mmol/L; ARTERIAL BLOOD H2CO3 1.22 mmol/L (1.05-1.35); ARTERIAL BLOOD HCO3 25.9 mmol/L (20-24); ARTERIAL BLOOD O2 SATURATION 94.1 % (94-98); ARTERIAL BLOOD PCO2 40.6 mmHg (35-45); ARTERIAL BLOOD PH 7.42 (7.35-7.45); ARTERIAL BLOOD PO2 68.7 mmHg (80-100); ARTERIAL BLOOD TOTAL CO2 27.1 mmol/L (21-25)
[2019-04-19 22:10] LABS: ARTERIAL BLOOD FIO2 ROOM AIR
[2019-04-19 23:51] VITALS: BP 134/78
== END 2019-04-19 23:51 | disposition home or self-care (01) ==
LOC: ER 16:21
DX: J45.31 Mild persistent asthma with (acute) exacerbation (principal); J44.1 Chronic obstructive pulmonary disease with (acute) exacerbation; R06.02 Shortness of breath; I10 Essential (primary) hypertension; R05 Cough; R07.2 Precordial pain; R60.0 Localized edema
CPT/HCPCS: 93005; 36415; 82803; 85025; 80053; 84484; 83880; 71046; 93010; J7512; J7620; 94640; 99285

== ENCOUNTER 2019-06-05 10:31 | Day surgery (SDC) | payer BC, OTHER ==
[2019-06-05] MEDS ORDERED: PROPOFOL INJ 200 MG/20 ML VIAL IV ONE (10:43)
--- NOTE | 2019-06-05 12:07 | Operative Report ---
Operative Report DATE OF SURGERY: 06/05/19 Operative Report: The risks, benefits and alternatives of the procedure including the risk of bleeding, perforation requiring surgery have been explained to the patient in detail and informed consent has been obtained. Patient is placed in a left, lateral decubital position. Timeout was called. Propofol medication is administered. Rectal examination is done which did not reveal any masses, tears or fissures. An Olympus videoscope was introduced into the patient's rectum. Scope was then carefully advanced all the way to the cecum. The cecum was identified by the usual anatomical landmarks including the ileocecal valve as well as the appendiceal office. Photodocumentation is obtained. Scope was then sequentially pulled back via the various segments of the colon including the ascending colon, pelvic flexure, transverse colon, splenic flexure, descending colon and finally into the rectosigmoid portions of the colon. Retroflexion maneuvers performed. PREOPERATIVE DIAGNOSIS: Blood in stool personal history of polyp POSTOPERATIVE DIAGNOSIS: Right colon inflammation status post biopsy. Diverticulosis without any evidence of diverticulitis. Internal hemorrhoids. Rectal polyp status post removal with biopsy forceps OPERATION: Colonoscopy with biopsy SURGEON: CHINYERE JOSEPH ANESTHESIA: LMAC TISSUE REMOVED OR ALTERED: As noted above. COMPLICATIONS: None. ESTIMATED BLOOD LOSS: None. INTRAOPERATIVE FINDINGS: As noted above. PROCEDURE: Patient tolerated the procedure well. No immediate postprocedure complications are noted. Patient is discharged in good condition. Discharge date 06/05/2019. Discharge diet: Regular. Discharge activity: Regular. 2 to 3-week follow-up to discuss findings. Patient is instructed to call the office or proceed to the emergency room should there be any further problems or questions. Wait on the pathology. 5-year surveillance colonoscopy.
[2019-06-05 12:39] VITALS: BP 98/56
== END 2019-06-05 12:35 | disposition home or self-care (01) ==
LOC: END 10:31
PROVIDERS: ATTEND Internal Medicine Gastroenterology
DX: K52.9 Noninfective gastroenteritis and colitis, unspecified (principal); K57.30 Diverticulosis of large intestine without perforation or abscess without bleeding; K64.8 Other hemorrhoids; D12.8 Benign neoplasm of rectum; K92.1 Melena; Z86.010 Personal history of colon polyps; Z79.899 Other long term (current) drug therapy; Z79.51 Long term (current) use of inhaled steroids
CPT/HCPCS: 45380; 88305 ×2; 00811; J2704; 811

== ENCOUNTER 2019-07-27 09:10 | Day surgery (SDC) | payer BC ==
[~2019-07-27 09:10] MED LIST changes: -ALBUTEROL SULFATE 0.083% NEB 2.5 MG/3 ML AMPUL NEB ONE; +PROPOFOL INJ 200 MG/20 ML VIAL IV ONE
[2019-07-27 10:45] LABS: HEMATOCRIT 33.4 % (36.0-47.0); MEAN CORPUSCULAR HEMOGLOBIN 29.4 pg (27.0-33.4); MEAN CORPUSCULAR HGB CONC 33.1 g/dL (32.0-36.0); MEAN CORPUSCULAR VOLUME 89 fl (80-97); PLATELET COUNT 240 10^3/uL (150-450); RED BLOOD COUNT 3.76 10^6/uL (3.72-5.28); RED CELL DISTRIBUTION WIDTH 13.3 % (11.5-14.0); WHITE BLOOD COUNT 7.5 10^3/uL (4.0-10.5)
--- NOTE | 2019-07-27 11:36 | Discharge Summary ---
Discharge Summary (SDC) - Discharge Final Diagnosis: Bleeding internal hemorrhoids Date of Surgery: 07/27/19 Discharge Date: 07/27/19 Condition: Stable Forms: EU Anesthesia D/C Instructions, Discharge POC-Surgical Service Treatment or Instructions: Discharge home. Diet as tolerated. Activity: Nonstrenuous. Colace and fiber supplement twice daily. Follow-up with [facility] in 2 to 3 weeks. 5% lidocaine ointment to rectum 3 times daily. Referrals: MAY BRAGG MD [Primary Care Provider] - REEMA CLARK MD [ACTIVE STAFF] - 08/08/19 8:15 am Discharge Diet: As Tolerated Respiratory Treatments at Home: Deep Breathing/Coughing, Incentive Spirometer Discharge Activity: Activity As Tolerated Home Care Assistance: None Needed Report the Following to Your Physician Immediately: Shortness of Breath, Nausea, Vomiting, Increase in Pain, Fever over 101 Degrees, Unusual Bleeding, Redness, Swelling, Warmth, Increased Soreness, Drainage-Yellow, Drainage-Bailey, Drainage- Green, Drainage-Foul Smelling, Large Clots, Tingling Sensation, Visual Disturbance, Wheezing, Seizure, IV Site Infection Signs, Urinary Infection Signs
--- NOTE | 2019-07-27 11:47 | Operative Report ---
Nonrecallable Operative Report DATE OF SURGERY: 07/27/19 PREOPERATIVE DIAGNOSIS: Bleeding internal hemorrhoids POSTOPERATIVE DIAGNOSIS: Same as above OPERATION: Rubber band ligation of bleeding internal hemorrhoids x3 SURGEON: REEMA CLARK TISSUE REMOVED OR ALTERED: None COMPLICATIONS: None apparent ESTIMATED BLOOD LOSS: Minimal PROCEDURE: Drains/implants: None. Procedure in detail: After informed consent was obtained, the patient was brought to the operating room and laid in the left lateral decubitus position. The endoscope/Hill-Pagan retractor was inserted into the rectum. There were enlarged hemorrhoids in all 3 columns. Hemorrhoids were ligated using the rubber band ligation device in the right anterior, right posterior, left lateral positions. Once this was completed, the Hill-Pagan retractor was removed, and the procedure was concluded. All sponge, instrument, needle counts were correct x2. Condition: Stable.
[2019-07-27 13:02] VITALS: BP 133/81
--- NOTE | 2019-07-28 13:01 | EKG REPORT ---
SEVERITY:- NORMAL ECG - SINUS RHYTHM : Confirmed by: Amy Grissom 28-Jul-2019 13:00:55
== END 2019-07-27 12:10 | disposition home or self-care (01) ==
LOC: END 09:10
PROVIDERS: ATTEND Surgery
DX: K64.8 Other hemorrhoids (principal); K62.5 Hemorrhage of anus and rectum; I10 Essential (primary) hypertension; M10.9 Gout, unspecified; M32.9 Systemic lupus erythematosus, unspecified; Z86.010 Personal history of colon polyps; Z79.899 Other long term (current) drug therapy
CPT/HCPCS: 46221; 36415; 84132; 85027; 93005; 93010; 00902; J2704; 902

== ENCOUNTER → 2020-04-25 | Outpatient (CLI) | payer BC ==
--- NOTE | 2020-04-25 08:48 | ST Modified Barium Swallow ---
Recommendation - Recommendations Recommendations: No oral or pharyngeal phase deficits seen. Continue follow up with GI due to nature of symptoms. Medical Diagnoses - Medical Diagnoses Medical Diagnosis Description & ICD-10 Code(s): R13.10, R49.0 Other Medical Diagnoses/Co-Morbidities: reflux, COPD - ICD-10 Tx Diagnosis Coding (1) Dysphagia, unspecified ICD-10 Code(s): R13.10 - DYSPHAGIA, UNSPECIFIED (2) Dysphonia ICD-10 Code(s): R49.0 - DYSPHONIA ST Modified Barium Swallow - General Date: 04/25/20 Referring Physician: Dr. Donahue Risks/Precautions: None Date of Onset: 03/28/19 - approximate onset date Reason for Referral: difficulty swallowing - History History obtained from: Patient -: Medical - Patient attended assessment independnetly and acted as her own historian. Physician notes also contributed to medical history. Patient reports difficulty swallowing for approximately 1 year, reports that things will "get stuck, could be anything, solid or liquid". Does report some coughing with PO, no choking episodes where breath was obstructed, no recent pneumonia or bronchitis. Patient does have reflux, stated she was unsure of COPD diagnosis, however, is on oxygen at 2 Lt. Physician's notes indicate obstructive sleep apnea and chronic respiratory failure with hypoxia. Medications: per physician note: topamax, klor-con, omeprazole, centrum silver, meloxicam, hydrochlorothiazide, gabapentin, bisoprolol fumarate, allopurinol, prednisone, vit. D3, magnesium glycinate, Vit C, pantothenic acid, trelegy ellipta, ipratropium-albuterol, ipratropium bromide, plaquenil, albuterol montelukast Allergies: none reported - Functional Status Prior Functional Status: INDEPENDENT: feeding - independent Current Functional Limitations: feeding - globus - Subjective Patient/caregiver goal(s): safe swallow Cognitive-Linguistic Function: WNL Speech Intelligibility: WNL Current Nutritional Means: PO Current PO diet: Regular Current symptoms: c/o Globus sensation Pain: Patient reports, 0/5 - Objective Assessment: Upright, Left Lateral - Food Trials Used Food trials used: Thin liquids, Pureed, Regular The patient: Was Able to Self Feed - Oral-Motor Skills Dentition: Partial Velo-pharyngeal function: Unremarkable Laryngeal Function: hoarse - Assessment Oral prep: Normal Labial closure: Adequate Leakage: None Mastication: Adequate Lingual Movement: Normal Oral stage: Normal for this Procedure - Pharyngeal Stage Initiation of Pharyngeal Stage Reflex: Normal Decreased laryngeal elevation: No Reduced Velopharyngeal Closure: no Reduced pressure generation: No reduced tongue-based retraction: No Pre-swallow pooling in valleculae: None Pre-Swallow pooling in pyriforms: None Reduced Thyro-Hyoid approximation: No Reduced epiglottic excursion: No Reduced pharyngeal peristalsis/contraction: No Post-swallow residulas vallecular: None Post-Swallow residuals in pyriforms: None Post-Swallow Residuals: no residuals - Fall Risk Assessment Medications/Conditions that increase fall risks include: Antidepressants, sedatives, anti-arrhythmic, diuretic, benzodiazipenes, neuroleptics. BP regulation problems, cardiac problems, balance or gait deficits, neurological problems. Is patient considered at risk for falls: yes Fall Risk Actions Taken: No action needed - Behavioral Observations During evaluation process patient: was cooperative, able to answer questions - Treatment / Educational Needs: Treatment/Education Needs: Treatment consisted of patient education on the role of the Speech Pathologist. Patient's plan of care and golas were communicated as well as scheduling and attendance policies. Recommendations for initial home program were shared. Patient demonstrated understanding and verbalized agreement. - Impression/Summary Tracheal Aspiration: no Patient presents with: Normal swallow at eval Risk of Aspiration: Minimal - Recommendations Solid diet recommendations: Regular Liquid Diet Modification: Thin Dysphagia therapy with INTERVENTIONAL RADIOLOGIST: no Recommended techniques: Fully Upright During Meal Information, Precautions and Recommendations: Patient (Verbal) - Time Total Time: 30 - Plan of Care Strategies to optimize patient understanding include:: ongoing assessment of educational needs, implementation of educational strategies, and re-education. - - -: Thank you for the opportunity to work with this patient and his/her family. Should you have any questions about this patient's plan or progress, I can be reached at [phone].
--- NOTE | 2020-04-25 09:17 | RADIOLOGY REPORT (SQ) ---
EXAM DESCRIPTION: COOKIE SWALLOW, BARIUM SWALLOW IMAGES COMPLETED DATE/TIME: 04/25/2020 8:55 am REASON FOR STUDY: R13.10 DYSPHAGIA, UNSPECIFIED R13.10 DYSPHAGIA, UNSPECIFIED morbid obesity, short ness of breath COMPARISON: None. TECHNIQUE: Videofluoroscopic swallowing examination was performed in conjunction with speech patholo gy. The cookie swallow was followed by a double contrast barium swallow. Fluoroscopic imaging was o btained and reviewed and these are the findings: RADIATION DOSE: 4 minutes of fluoroscopy was used. 18 images saved to PACS. LIMITATIONS: Morbid obesity FINDINGS: The patient was brought into the fluoro room and placed upright on a modified barium swall ow chair. The patient was then given multiple consistencies mixed with barium to swallow under live fluoroscopic video guidance. According to the Speech Pathologist there was no penetration or aspirat ion. After ingestion of effervescent granules and thick and thin barium and air contrast barium swallow wa s performed. Esophageal mucosa is normal. No ulcerations or strictures seen. There is slow primary peristalsis w ith tertiary contractions seen the distal esophagus. There is a large hiatal hernia with mild gastro esophageal reflux seen. 12 mm barium tablet was swallowed passed through the GE junction with little delay. IMPRESSION: NO EVIDENCE OF PENETRATION OR ASPIRATION. PLEASE SEE SPEECH PATHOLOGIST REPORT FOR OTHER FINDINGS AND RECOMMENDATIONS. LARGE HIATAL HERNIA WITH MILD GASTROESOPHAGEAL REFLUX. MILD ESOPHAGEAL DYSMOTILITY. COMMENT: Quality ID [id number]: Final reports for procedures using fluoroscopy that document radiation exp osure indices, or exposure time and number of fluorographic images (if radiation exposure indices are not available) TECHNICAL DOCUMENTATION: JOB ID: [id number] 2010 [employer]- All Rights Reserved Reading location - IP/workstation name: [email or web address] [id number]
== END ==
LOC: RAD 07:45
PROVIDERS: ATTEND Internal Medicine Pulmonary Disease
DX: R13.10 Dysphagia, unspecified (principal); R49.0 Dysphonia; E66.01 Morbid (severe) obesity due to excess calories; K44.9 Diaphragmatic hernia without obstruction or gangrene; K21.9 Gastro-esophageal reflux disease without esophagitis; J44.9 Chronic obstructive pulmonary disease, unspecified; G47.33 Obstructive sleep apnea (adult) (pediatric); J96.11 Chronic respiratory failure with hypoxia; Z99.81 Dependence on supplemental oxygen
CPT/HCPCS: 74230

== ENCOUNTER 2020-04-29 06:28 | Day surgery (SDC) | payer BC ==
[2020-04-29] MEDS ORDERED: PROPOFOL INJ 200 MG/20 ML VIAL IV ONE (07:30)
[2020-04-29] MEDS ORDERED: IPRATROPIUM/ALBUTEROL 0.5-2.5 MG/3 ML AMPUL NEB ONE (08:12)
--- NOTE | 2020-04-29 08:50 | Operative Report ---
Operative Report DATE OF SURGERY: 04/29/20 Operative Report: The risks benefits and alternatives of the procedure explained to the patient in detail and informed consent is obtained.A GIF Olympus video scope was inserted into the patient's mouth and hypopharynx, the esophagus is identified intubated and insufflated, the scope was then advanced through the esophagus stomach and duodenum, retroflexion maneuver is done, the esophagus stomach and first and second portions of the duodenum examined PREOPERATIVE DIAGNOSIS: Dysphagia, gastroesophageal reflux disease POSTOPERATIVE DIAGNOSIS: No esophageal obstruction noted. Possible paraesophageal hernia. Biopsies at the distal esophagus small possible Schatzki's ring. Gastritis status post biopsy OPERATION: EGD with biopsy SURGEON: CHINYERE JOSEPH ANESTHESIA: LMAC TISSUE REMOVED OR ALTERED: As noted above. COMPLICATIONS: None. ESTIMATED BLOOD LOSS: None. INTRAOPERATIVE FINDINGS: As noted above. PROCEDURE: Patient tolerated the procedure well. No immediate postprocedure complications are noted. Patient is discharged in good condition. Discharge date 04/29/2020. Discharge diet: Regular. Discharge activity: Regular. 2 to 3-week follow-up to discuss findings. Patient is instructed to call the office or proceed to the emergency room should there be any further problems or questions. Wait on the pathology.
[2020-04-29 09:30] VITALS: BP 152/94
== END 2020-04-29 09:40 | disposition home or self-care (01) ==
LOC: END 06:28
PROVIDERS: ATTEND Internal Medicine Gastroenterology
DX: K29.50 Unspecified chronic gastritis without bleeding (principal); K44.9 Diaphragmatic hernia without obstruction or gangrene; K21.00 Gastro-esophageal reflux disease with esophagitis, without bleeding; K63.5 Polyp of colon; K64.8 Other hemorrhoids; K59.1 Functional diarrhea; K62.5 Hemorrhage of anus and rectum; R10.11 Right upper quadrant pain; I10 Essential (primary) hypertension; Z03.818 Encounter for observation for suspected exposure to other biological agents ruled out; Z79.899 Other long term (current) drug therapy; Z82.69 Family history of other diseases of the musculoskeletal system and connective tissue; G47.33 Obstructive sleep apnea (adult) (pediatric); E66.9 Obesity, unspecified; Z68.44 Body mass index [BMI] 60.0-69.9, adult; M32.9 Systemic lupus erythematosus, unspecified; J45.909 Unspecified asthma, uncomplicated
CPT/HCPCS: 43239; 88342 ×2; 88305 ×2; U0003; J2704; C9803; 87635

== ENCOUNTER → 2020-05-06 | Outpatient (CLI) | payer BC ==
--- NOTE | 2020-05-06 11:46 | RADIOLOGY REPORT (SQ) ---
EXAM DESCRIPTION: U/S ABDOMEN LIMITED W/O DOP IMAGES COMPLETED DATE/TIME: 05/06/2020 10:18 am REASON FOR STUDY: R10.11 RIGHT UPPER QUADRANT PAIN R10.11 RIGHT UPPER QUADRANT PAIN COMPARISON: None. TECHNIQUE: Dynamic and static grayscale images acquired of the abdomen and recorded on PACS. Additio nal selected color Doppler and spectral images recorded. LIMITATIONS: Examination is limited due to patient body habitus. FINDINGS: PANCREAS: The pancreas is not visualized due to patient body habitus. LIVER: The liver measures 14.0 cm in length, normal size. No masses. Echotexture normal. LIVER VASCULATURE: Normal directional flow of the main portal vein and hepatic veins. GALLBLADDER: Examination of the gallbladder is limited, the patient was unable to be positioned in t he left lateral decubitus position. Gallstones and gallbladder sludge. The gallbladder wall measure s 2.0 mm. No pericholecystic fluid. ULTRASOUND-DETECTED AREVALO'S SIGN: Negative. INTRAHEPATIC DUCTS AND COMMON DUCT: CBD and intrahepatic ducts normal caliber. No filling defects. INFERIOR VENA CAVA: Normal flow. AORTA: The proximal and mid segments are patent. The distal segment is suboptimally visualized. RIGHT KIDNEY: The right kidney measures 11.0 x 5.0 5.0 cm, normal size. Normal echogenicity. Quest ion of a 1.8 x 1.4 x 1.3 cm cyst in the mid pole of the kidney. No hydronephrosis. PERITONEAL AND RIGHT PLEURAL SPACE: No ascites or effusions. OTHER: No other significant findings. IMPRESSION: 1. Examination is technically very limited due to patient's body habitus. 2. Gallstones and gallbladder sludge. No evidence of biliary obstruction. 3. The pancreas and distal segment of the abdominal aorta are not well visualized. 4. Question of a right renal cyst. TECHNICAL DOCUMENTATION: JOB ID: [id number] 2010 [employer]- All Rights Reserved Reading location - IP/workstation name: [email or web address]
--- NOTE | 2020-05-06 13:35 | RADIOLOGY REPORT (SQ) ---
EXAM DESCRIPTION: NM HIDA SCAN IMAGES COMPLETED DATE/TIME: 05/06/2020 1:22 pm REASON FOR STUDY: R10.11 RIGHT UPPER QUADRANT PAIN R10.11 RIGHT UPPER QUADRANT PAIN COMPARISON: Ultrasound 05/06/2020 RADIONUCLIDE AND DOSE: DOSAGE RADIONUCLIDE: 5 millicuries Tc99m Mebrofenin. DOSAGE MORPHINE: Not required. The route of agent administration: Intravenous TECHNIQUE: Serial imaging right upper quadrant up to 60 minutes following injection of radionuclide. Patient imaged AP and Right Lateral. LIMITATIONS: None. FINDINGS: LIVER: Normal visualization without areas of photopenia. INTRA-HEPATIC BILE DUCTS: Temporal visualization normal. No dilatation. COMMON BILE DUCT: Normal without dilatation or delayed visualization. GALLBLADDER: Poorly seen. There does appear to be some activity in a nondistended gallbladder. OTHER: No other significant finding. IMPRESSION: NORMAL STUDY WITHOUT CYSTIC OR COMMON DUCT OBSTRUCTION. TECHNICAL DOCUMENTATION: JOB ID: [id number] 2010 [email or web address]- All Rights Reserved Reading location - IP/workstation name: [email or web address]
== END ==
LOC: RAD 09:26
PROVIDERS: ATTEND Nurse Practitioner Family
DX: K80.80 Other cholelithiasis without obstruction (principal); R10.11 Right upper quadrant pain
CPT/HCPCS: 76705; 78226; A9537; Q9969